=== PATIENT | female | born 1985 | race Caucasian/White ===

== ENCOUNTER 2017-06-19 16:32 | Emergency (ER) | payer OTHER, MEDICAID ==
[~2017-06-19] VITALS: Ht 160 cm; Wt 88.9 kg
[~2017-06-19 16:32] MED LIST: AMOXICILLIN500 M1 PO; AUGMENTIN 875875 M1 PO; BACTRIM DS TAB1 EACH PO; BENADRYL25 MG PO; CIPRO500 MG PO; CIPROFLOXIN HC2.5 M1 OPHTHALMIC; DIFLUCAN150 MG PO; FIORICET 50-321 EACH PO; HYDROCODONE-AP1 EAC6 PO; HYDROCODONE-APA1 TA1 PO; HYDROXYZINE HCL25 M1 PO; IBUPROFEN200 M2 PO; KEFLEX500 MG PO; MEDROLDOSEPACK PO; NAPROSYN250 MG PO; NOHOMEMEDICATIONS; NORCO 5-325 TA1 EACH PO; PAIN & FEVER500 MG PO; PENICILLIN VK500 MG PO; PEPCID20 MG PO; PERCOCET 5-3251 EACH PO; PRILOSEC 20 MG20 MG PO; TRAMADOL 50 MG50 MG PO; ULTRAM 50MG TAB50 MG PO; ZOFRAN ODT4 MG PO
[2017-06-19 16:54] LABS: URINE BILIRUBIN NEGATIVE (Negative); URINE BLOOD 2+ (Negative); URINE CLARITY CLEAR; URINE COLOR YELLOW; URINE GLUCOSE-RANDOM NEGATIVE (Negative); URINE KETONES NEGATIVE (Negative); URINE LEUKOCYTES-REFLEX NEGATIVE (Negative); URINE NITRITE-REFLEX NEGATIVE (Negative); URINE PROTEIN NEGATIVE (Negative); URINE SPECIFIC GRAVITY >= 1.030 (1.005-1.030); URINE UROBILINOGEN 0.2 E.U./dl (0.2-1.0)
[2017-06-19] MEDS ORDERED: MUPIROCIN22 GM TOP (17:02)
[2017-06-19 17:09] LABS: CASTS None Seen /LPF (None Seen); CRYSTALS None Seen /LPF (None Seen); MUCUS 0-3 Light strn/LPF (None Seen); SQUAMOUS >10 Many /LPF (0-3); URINE RBC 0-2 Rare /HPF (0-2); URINE WBC-REFLEX 0-5 Rare /HPF (0-5)
[2017-06-19 17:27] VITALS: BP 142/104
== END 2017-06-19 17:27 | disposition home or self-care (01) ==
LOC: M.ERS 16:32
PROVIDERS: Nurse Practitioner Family
DX: K13.0 Diseases of lips (principal); R35.0 Frequency of micturition; F41.9 Anxiety disorder, unspecified; G43.909 Migraine, unspecified, not intractable, without status migrainosus; F17.210 Nicotine dependence, cigarettes, uncomplicated; Z88.8 Allergy status to other drugs, medicaments and biological substances

== ENCOUNTER 2019-06-01 17:37 | Emergency (ER) | payer OTHER ==
[~2019-06-01] VITALS: Ht 160 cm; Wt 107.0 kg
[~2019-06-01 17:37] MED LIST changes: +MUPIROCIN22 GM TOP
[2019-06-01] MEDS ORDERED: OZURDEX0.7 MG TOP (17:49)
[2019-06-01] MEDS ORDERED: CLOTRIMAZOLE 1%15 G1 TOP (18:12)
[2019-06-01] MEDS ORDERED: AMOXICILLIN 50500 MG PO (18:12)
[2019-06-01 18:44] VITALS: BP 141/99
== END 2019-06-01 18:45 | disposition home or self-care (01) ==
LOC: M.ERS 17:37
DX: K02.9 Dental caries, unspecified (principal); L53.9 Erythematous condition, unspecified; G43.909 Migraine, unspecified, not intractable, without status migrainosus; F17.210 Nicotine dependence, cigarettes, uncomplicated; Z88.8 Allergy status to other drugs, medicaments and biological substances; Z98.890 Other specified postprocedural states

== ENCOUNTER 2020-08-15 19:40 | Emergency (ER) | payer OTHER ==
[~2020-08-15] VITALS: Ht 160 cm; Wt 112.0 kg
[~2020-08-15 19:40] MED LIST changes: +AMOXICILLIN 50500 MG PO; +CLOTRIMAZOLE 1%15 G1 TOP; +OZURDEX0.7 MG TOP
[2020-08-15] MEDS ORDERED: CLOTRIMAZOLE-BE15 GM TOP (20:46)
[2020-08-15] MEDS ORDERED: HYDROCODONE-ACE15 ML PO (20:46)
[2020-08-15 21:01] VITALS: BP 138/88
== END 2020-08-15 21:04 | disposition home or self-care (01) ==
LOC: M.ERS 19:40
DX: J02.9 Acute pharyngitis, unspecified (principal); Z20.822 Contact with and (suspected) exposure to COVID-19; G43.909 Migraine, unspecified, not intractable, without status migrainosus; F17.210 Nicotine dependence, cigarettes, uncomplicated; Z98.890 Other specified postprocedural states; Z88.8 Allergy status to other drugs, medicaments and biological substances

== ENCOUNTER 2021-05-01 12:36 | Emergency (ER) | payer OTHER ==
[~2021-05-01] VITALS: Ht 160 cm; Wt 106.6 kg
[~2021-05-01 12:36] MED LIST changes: +CLOTRIMAZOLE-BE15 GM TOP; +HYDROCODONE-ACE15 ML PO
[2021-05-01] MEDS ORDERED: HYDROCODON-ACE1 EAC7 PO (14:52)
[2021-05-01 14:56] VITALS: BP 131/70
== END 2021-05-01 14:57 | disposition home or self-care (01) ==
LOC: M.ERS 12:36
DX: S50.12XA Contusion of left forearm, initial encounter (principal); S01.111A Laceration without foreign body of right eyelid and periocular area, initial encounter; G43.909 Migraine, unspecified, not intractable, without status migrainosus; F41.9 Anxiety disorder, unspecified; F17.210 Nicotine dependence, cigarettes, uncomplicated; Z98.890 Other specified postprocedural states; Z88.8 Allergy status to other drugs, medicaments and biological substances; Z79.899 Other long term (current) drug therapy; Y04.2XXA Assault by strike against or bumped into by another person, initial encounter; Y93.89 Activity, other specified; Y92.89 Other specified places as the place of occurrence of the external cause; Y99.8 Other external cause status

== ENCOUNTER 2021-05-12 20:23 | Emergency (ER) | payer BC ==
[~2021-05-12] VITALS: Ht 160 cm; Wt 90.7 kg
[~2021-05-12 20:23] MED LIST changes: +HYDROCODON-ACE1 EAC7 PO
[2021-05-12 21:46] VITALS: BP 137/96
== END 2021-05-12 21:46 | disposition home or self-care (01) ==
LOC: M.ERS 20:23
DX: S01.81XD Laceration without foreign body of other part of head, subsequent encounter (principal); G43.909 Migraine, unspecified, not intractable, without status migrainosus; F17.210 Nicotine dependence, cigarettes, uncomplicated; Z88.8 Allergy status to other drugs, medicaments and biological substances; Z98.890 Other specified postprocedural states; X58.XXXD Exposure to other specified factors, subsequent encounter